=== PATIENT | female | born 1965 | race Caucasian/White ===

== ENCOUNTER 2017-10-25 11:11 | Inpatient (IN) ==
[2017-10-25] MEDS ORDERED: Acetaminophen 325 MG Tablet PO PRN (23:07)
[2017-10-25] MEDS ORDERED: Morphine Inj 4 MG/ML Vial IV.PUSH PRN (23:10)
--- NOTE | 2017-10-25 23:12 | P.HPIM ---
History of Present Illness Service: [facility] Primary Care Physician: No Primary Care Physician Chief Complaint: abdominal pain History of Present Illness: 52-year-old female with no medical history presented to the ED with complaints of right flank plain today. She states the pain is a constant 10/10, stabbing, to the right abdomen with radiation to her lower back, worse with movement, better with pain medication and no associated symptoms. She denies any chest pain, shortness of breath, fever or chills. PMFSH - History History Provided By: Patient - Medical / Surgical Hx Neg / Unobtainable Medical Problems Denied: Yes Surgical History: No Previous Surgery - Medical History Medical History: Medical History (Last Reviewed 10/26/17 @ 00:04 by ROMI Knutson) No significant past medical history - Surgical History Surgical History: Surgical History (Last Reviewed 10/26/17 @ 00:04 by ROMI Knutson) No history of previous surgery - Family History Family History: Family History (Last Reviewed 10/26/17 @ 00:04 by ROMI Knutson) Other Family history normal - Social History I have reviewed the patient's Social History: Yes - Tobacco History Second Hand Smoke Exposure: Yes Tobacco Use In Past 30 Days: Yes Smoking Status: Current every day smoker Tobacco Type: Cigarettes - Alcohol History How Often Do You Have a Drink Containing Alcohol: Never - Substance Use History Substance History: No History of Abuse Medications and Allergies Active Medications: Active Medications Acetaminophen (Tylenol) 650 mg PO Q4H PRN PRN Reason: Temp > 100.4 Sodium Chloride (Ns Inj) 1,000 mls @ 100 mls/hr IV.CONT .Q10H [facility] Morphine Sulfate (Morphine Inj) 2 mg IV.PUSH Q3H PRN PRN Reason: pain 1 to 10 Ondansetron HCl (Zofran Inj) 4 mg IV.PUSH Q6H PRN PRN Reason: NAUSEA OR VOMITING Allergies Allergy/AdvReac Type Severity Reaction Status Date / Time chocolate flavor [Chocolate] Allergy Severe Swelling Verified 10/25/17 11:58 STEROIDS Allergy Severe Anaphylaxis Uncoded 10/25/17 11:57 Home Medications Medication Instructions Recorded Confirmed Type levetiracetam 500 mg PO BID 10/25/17 10/25/17 History Exam Vital signs: Vital Signs 10/25/17 22:16 Temperature 98.4 F Pulse Rate 80 Respiratory Rate 16 Blood Pressure 124/79 Pulse Oximetry 94 L Intake & Output 10/25/17 10/25/17 10/26/17 06:59 18:59 06:59 Weight 61.6 kg Other: Weight On Admission 61.6 kg Narrative: GENERAL: This is a well-nourished, well-developed patient, in no apparent distress. SKIN: Warm, dry, intact, no ecchymosis or open lesions EYES: Pupils equal round and reactive, no scleral edema or drainage CARDIOVASCULAR: Regular rate and rhythm without murmurs, gallops, or rubs. RESPIRATORY: Clear to auscultation. Breath sounds equal bilaterally. No wheezes , rales, or rhonchi. GASTROINTESTINAL: Abdomen soft, RUQ tenderness, nondistended. Normal active bowel sounds MUSCULOSKELETAL: Extremities without clubbing, cyanosis, or edema. NEURO: Alert & Oriented x4 to person, place, time, situation. Moves all ext x4 Caprini VTE Risk Assessment Caprini VTE Risk Assessment: No/Low Risk (score <= 1) Caprini Risk Assessment Model: Point Value = 1 Point Value = 2 Point Value = 3 Point Value = 5 Age 41-60 Minor surgery BMI > 25 kg/m2 Swollen legs Varicose veins or History of unexplained or recurrent spontaneous Oral contraceptives or hormone replacement Sepsis (< 1 month) Serious lung disease, including pneumonia (< 1 month) Abnormal pulmonary function Acute myocardial infarction Congestive heart failure (< 1 month) History of inflammatory bowel disease Medical patient at bed rest Age 61-74 Arthroscopic surgery Major open surgery (> 45 min) Laparoscopic surgery (> 45 min) Malignancy Confined to bed (> 72 hours) Immobilizing plaster cast Central venous access Age >= 75 History of VTE Family history of VTE Factor V Leiden Prothrombin [id number] Lupus anticoagulant Anticardiolipin antibodies Elevated serum homocysteine Heparin-induced thrombocytopenia Other congenital or acquired thrombophilia Stroke (< 1 month) Elective arthroplasty Hip, pelvis, or leg fracture Acute spinal cord injury (< 1 month) Prophylaxis Regimen: Total Risk Factor Score Risk Level Prophylaxis Regimen 0-1 Low Early ambulation 2 Moderate Order ONE of the following: *Sequential Compression Device (SCD) *Heparin 5000 units SQ BID 3-4 Higher Order ONE of the following medications: *Heparin 5000 units SQ TID *Enoxaparin/Lovenox 40 mg SQ daily (WT < 150 kg, CrCl > 30 mL/min) *Enoxaparin/Lovenox 30 mg SQ daily (WT < 150 kg, CrCl > 10-29 mL/min) *Enoxaparin/Lovenox 30 mg SQ BID (WT < 150 kg, CrCl > 30 mL/min) AND/OR *Sequential Compression Device (SCD) 5 or more Highest Order ONE of the following medications: *Heparin 5000 units SQ TID (Preferred with Epidurals) *Enoxaparin/Lovenox 40 mg SQ daily (WT < 150 kg, CrCl > 30 mL/min) *Enoxaparin/Lovenox 30 mg SQ daily (WT < 150 kg, CrCl > 10-29 mL/min) *Enoxaparin/Lovenox 30 mg SQ BID (WT < 150 kg, CrCl > 30 mL/min) AND *Sequential Compression Device (SCD) Assessment and Plan - Plan Cholelithiasis Gallbladder ultrasound reviewed and shows nonobstructive cholelithiasis Consult general surgery, plan for cholecystectomy in a.m. N.p.o., IVF Pain management with IV morphine Tobacco abuse, -Cessation provided DVT prophylaxis: SCDs Discussed Condition With: Patient and RN H&P: Quality - VTE Deep Vein Thrombosis/Pulmonary Embolism Present on Admission: No
[2017-10-26] MEDS: Sod Chloride 0.9% Inj 1,000 ML IV.CONT SCH ×3 (00:16→18:41)
[2017-10-26] MEDS: HYDROmorphone PF Inj 2 MG/ML Vial IV.PUSH PRN ×5 (03:32→20:22)
[2017-10-26 07:31] LABS: Baso # (Auto) 0.1 th/mm3 (0.0-0.2); Eos # (Auto) 0.4 th/mm3 (0.0-0.4); Eos % (Auto) 5.9 % (0.0-4.0); Hematocrit 39.3 % (35.0-46.0); Lymph # (Auto) 1.8 th/mm3 (1.0-4.8); Lymph % (Auto) 26.5 % (9.0-44.0); Mean Corpuscular Hemoglobin 35.5 pg (27.0-34.0); Mean Corpuscular Volume 107.5 fL (80.0-100.0); Mean Platelet Volume 7.1 fL (7.0-11.0); Mono # (Auto) 0.5 th/mm3 (0.0-0.9); Mono % (Auto) 7.4 % (0.0-8.0); Neut # (Auto) 4.1 th/mm3 (1.8-7.7); Neut % (Auto) 59.2 % (16.0-70.0); Platelet Count 413 th/mm3 (150-450); Red Blood Count 3.66 mil/mm3 (4.00-5.30); Red Cell Distribution Width 19.7 % (11.6-17.2); White Blood Count 6.9 th/mm3 (4.0-11.0)
[2017-10-26 07:52] LABS: Anion Gap 8 meq/L (5-15); Blood Urea Nitrogen 3 mg/dL (7-18); Calcium 8.6 mg/dL (8.5-10.1); Carbon Dioxide 29.5 meq/L (21.0-32.0); Chloride 106 meq/L (98-107); Glomerular Filtration Rate Greater Than 89 mL/min (>89); Glucose,Random 82 mg/dL (74-106); Potassium 3.8 meq/L (3.5-5.1); Sodium 143 meq/L (136-145)
[2017-10-26] MEDS ORDERED: Sodium Chlor 0.9% Inj 500 ML IV.CONT ONE (08:00)
[2017-10-26] MEDS ORDERED: Chlorhexidine Gluconate 2% 1 Pack (2 Cloths) TOPICAL ONE (08:00)
[2017-10-26] MEDS ORDERED: Metoprolol Tartrate 25 MG Tablet PO ONE (08:00)
--- NOTE | 2017-10-26 10:17 | P.CONGS ---
[facility] Gen Surgery Consult Note Consult date: 10/26/17 Reason for consult: gallstones Requesting physician: Latasha Rahman Narrative: CONSULTATION NOTE FOR SURGICAL ATTENDING, DR. PRATIK ARTHUR This is a 52 year old female with no known past medical history who presented to the [place] ED yesterday after sudden onset of RIGHT flank abdominal pain. She reports the pain is worse when she moves around. A CTA was completed which shows no PE. An US of the gallbladder as well as a CT of the abdomen/pelvis was obtain which both confirm cholelithiasis. Her liver enzymes are normal. A General Surgery consultation has been requested. Review of Systems All other systems reviewed negative except as stated in [facility] PMFSH - History History Provided By: Patient - Medical / Surgical Hx Neg / Unobtainable Medical Problems Denied: Yes - Medical History Medical History: Medical History (Last Reviewed 10/30/17 @ 16:46 by Pratik Arthur MD) No significant past medical history - Surgical History Surgical History: Surgical History (Last Reviewed 10/30/17 @ 16:46 by Pratik Arthur MD) No history of previous surgery - Family History Family History: Family History (Last Reviewed 10/30/17 @ 16:46 by Pratik Arthur MD) Other Family history normal - Tobacco History Second Hand Smoke Exposure: Yes Tobacco Use In Past 30 Days: Yes Smoking Status: Current every day smoker Tobacco Type: Cigarettes - Alcohol History How Often Do You Have a Drink Containing Alcohol: Never - Substance Use History Substance History: No History of Abuse Medications and Allergies Allergies Allergy/AdvReac Type Severity Reaction Status Date / Time chocolate flavor [Chocolate] Allergy Severe Swelling Verified 10/25/17 11:58 STEROIDS Allergy Severe Anaphylaxis Uncoded 10/25/17 11:57 Home Medications Medication Instructions Recorded Confirmed Type levetiracetam 500 mg PO BID 10/25/17 10/25/17 History Active Medications: Active Medications Acetaminophen (Tylenol) 650 mg PO Q4H PRN PRN Reason: Temp > 100.4 Hydromorphone HCl (Dilaudid Pf Inj) 1 mg IV.PUSH Q4H PRN PRN Reason: pain 1 to 10 Last Admin: 10/26/17 07:32 Dose: 1 mg Sodium Chloride (Ns Inj) 1,000 mls @ 100 mls/hr IV.CONT .Q10H [facility] Last Admin: 10/26/17 09:02 Dose: 100 mls/hr Lactated Ringer's (Lr 1000 Ml Inj) 1,000 mls @ 30 mls/hr IV.CONT .Q24H ONE Stop: 10/27/17 07:59 Sodium Chloride (Ns Inj) 500 mls @ 30 mls/hr IV.CONT .[id number] ONE Stop: 10/27/17 00:39 Ondansetron HCl (Zofran Inj) 4 mg IV.PUSH Q6H PRN PRN Reason: NAUSEA OR VOMITING Exam Vital signs: Vital Signs 10/26/17 00:00 10/26/17 00:20 10/26/17 01:44 Temperature 98.4 F Pulse Rate 80 76 Respiratory Rate 16 18 Blood Pressure 124/79 Pulse Oximetry 94 L 10/26/17 04:00 10/26/17 07:38 10/26/17 07:39 Temperature 98.4 F 97.6 F Pulse Rate 80 81 81 Respiratory Rate 16 18 Blood Pressure 116/70 137/86 Pulse Oximetry 93 L 91 L Intake & Output 09/12/18 09/13/18 09/13/18 18:59 06:59 18:59 Intake Total 1000 / 1000 Balance 1000 / 1000 Weight 61.6 kg Intake: IV 1000 / 1000 NS Inj 1,000 ML @ 100 mls/hr IV 1000 / 1000 .CONT .Q10H [facility] Rx#:[id number] Other: Weight On Admission 61.6 kg Narrative: GENERAL: Alert and awake female ambulating in her room in moderate distress secondary to abdominal pain. SKIN: Warm and dry. HEAD: Atraumatic. Normocephalic. EYES: Pupils equal and round. No scleral icterus. No injection or drainage. ENT: No nasal bleeding or discharge. Mucous membranes pink and moist. NECK: Trachea midline. CARDIOVASCULAR: Regular rate and rhythm. RESPIRATORY: No accessory muscle use. Clear to auscultation. Breath sounds equal bilaterally. GASTROINTESTINAL: Abdomen soft, nondistended. RUQ tenderness to palpation. Her umbilicus has a piercing in place. No visible scars or hernias. MUSCULOSKELETAL: Extremities without clubbing, cyanosis, or edema. No obvious deformities. NEUROLOGICAL: Awake and alert. No obvious cranial nerve deficits. Motor grossly within normal limits. Five out of 5 muscle strength in the arms and legs. Normal speech. PSYCHIATRIC: Appropriate mood and affect; insight and judgment normal. Results - Labs 10/26/17 07:03 10/26/17 07:03 Laboratory Results WBC 6.9 th/mm3 (4.0-11.0) 10/26/17 07:03 RBC 3.66 mil/mm3 (4.00-5.30) L 10/26/17 07:03 Hgb 13.0 gm/dL (11.6-15.3) 10/26/17 07:03 Hct 39.3 % (35.0-46.0) 10/26/17 07:03 MCV 107.5 fL (80.0-100.0) H 10/26/17 07:03 MCH 35.5 pg (27.0-34.0) H 10/26/17 07:03 MCHC 33.0 % (32.0-36.0) 10/26/17 07:03 RDW 19.7 % (11.6-17.2) H D 10/26/17 07:03 Plt Count 413 th/mm3 (150-450) 10/26/17 07:03 MPV 7.1 fL (7.0-11.0) 10/26/17 07:03 Neut % (Auto) 59.2 % (16.0-70.0) 10/26/17 07:03 Lymph % (Auto) 26.5 % (9.0-44.0) 10/26/17 07:03 [place] % (Auto) 7.4 % (0.0-8.0) 10/26/17 07:03 Eos % (Auto) 5.9 % (0.0-4.0) H 10/26/17 07:03 Baso % (Auto) 1.0 % (0.0-2.0) 10/26/17 07:03 Neut # (Auto) 4.1 th/mm3 (1.8-7.7) 10/26/17 07:03 Lymph # (Auto) 1.8 th/mm3 (1.0-4.8) 10/26/17 07:03 [place] # (Auto) 0.5 th/mm3 (0.0-0.9) 10/26/17 07:03 Eos # (Auto) 0.4 th/mm3 (0.0-0.4) 10/26/17 07:03 Baso # (Auto) 0.1 th/mm3 (0.0-0.2) 10/26/17 07:03 WBC Differential . 10/26/17 07:03 Differential Comment Auto diff final 10/26/17 07:03 Sodium 143 meq/L (136-145) 10/26/17 07:03 Potassium 3.8 meq/L (3.5-5.1) 10/26/17 07:03 Chloride 106 meq/L (98-107) 10/26/17 07:03 Carbon Dioxide 29.5 meq/L (21.0-32.0) 10/26/17 07:03 Anion Gap 8 meq/L (5-15) 10/26/17 07:03 BUN 3 mg/dL (7-18) L 10/26/17 07:03 Creatinine 0.39 mg/dL (0.50-1.00) L 10/26/17 07:03 Estimated GFR Greater than 89 mL/min (>89) 10/26/17 07:03 Random Glucose 82 mg/dL (74-106) 10/26/17 07:03 Calcium 8.6 mg/dL (8.5-10.1) 10/26/17 07:03 - Imaging CT scan - abdomen: report reviewed, image reviewed CT scan - chest: report reviewed, image reviewed US - abdomen: report reviewed, image reviewed Assessment and Plan - Assessment (1) Biliary colic Code(s): K80.50 - Calculus of bile duct without cholangitis or cholecystitis without obstruction Status: Inactive Plan: 52 year old female with RUQ pain; cholelithiasis -Clear liquids tonight; NPO after MN -Obtain consents for laparoscopic cholecystectomy -Will plan for lap chris tomorrow -Procedure explained and all questions answered -Thank you for this consult; We will continue to follow (2) Right upper quadrant pain Code(s): R10.11 - Right upper quadrant pain Status: Acute (3) Cholecystitis Code(s): K81.9 - Cholecystitis, unspecified Status: Acute (4) Abnormal findings on diagnostic imaging of liver and biliary tract Code(s): R93.2 - Abnormal findings on diagnostic imaging of liver and biliary tract Status: Acute (5) Abnormal findings on diagnostic imaging of gallbladder Code(s): R93.2 - Abnormal findings on diagnostic imaging of liver and biliary tract Status: Acute - Plan Discussed Condition With: Dr. Farideh Brown - Attending Attestation CONSULTATION NOTE FOR SURGICAL ATTENDING, DR. PRATIK ARTHUR Patient has severe right upper quadrant pain and all the clinical findings consistent with biliary colic confirmed with radiologic imaging I agree with above assessment and plan. The exam, history, and the medical decision-making described in the above note were completed with the assistance of the mid-level provider. I reviewed and agree with the findings presented. I attest that I had a [id number] encounter with the patient on the same day, and personally performed and documented my assessment and findings in the medical record. The following services were provided during this hospital visit: Chart data review, vital sign assessments/reviewing monitor data Review of consultations notes if present. Medication orders/review and/or management Ordering and/or reviewing lab tests Ordering and/or interpreting/reviewing x-rays and/or diagnostic studies Care of the patient and discussion of the patient with the care team Documentation time To help prompt me to consider important information that might be impacting today's encounter and assessment, Information from prior notes written by myself or my colleagues may have been "brought forward/copy and pasted" into today's note.
--- NOTE | 2017-10-26 12:43 | P.PNIM ---
Subjective Interval history: Denies any deterioration since last night. Patient reports still having pain. No nausea. Physical Exam Vital signs: Vital Signs 10/26/17 00:00 10/26/17 00:20 10/26/17 01:44 Temperature 98.4 F Pulse Rate 80 76 Respiratory Rate 16 18 Blood Pressure 124/79 Pulse Oximetry 94 L 10/26/17 04:00 10/26/17 07:38 10/26/17 07:39 Temperature 98.4 F 97.6 F Pulse Rate 80 81 81 Respiratory Rate 16 18 Blood Pressure 116/70 137/86 Pulse Oximetry 93 L 91 L 10/26/17 12:00 Temperature 97.8 F Pulse Rate 81 Respiratory Rate 16 Blood Pressure 128/76 Pulse Oximetry 90 L Intake & Output 10/25/17 10/26/17 10/26/17 18:59 06:59 18:59 Intake Total 1000 / 1000 Balance 1000 / 1000 Weight 61.6 kg Intake: IV 1000 / 1000 NS Inj 1,000 ML @ 100 mls/hr IV 1000 / 1000 .CONT .Q10H [facility] Rx#:[id number] Other: Weight On Admission 61.6 kg Narrative: Abdomen soft, but diffusely tender to palpation, no distention Lying in bed, awake, alert, mild distress secondary to pain Unlabored breathing Results - Labs CBC & Chem 7: 10/26/17 07:03 10/26/17 07:03 Laboratory Results - last 24 hr 10/26/17 10/26/17 07:03 07:03 WBC 6.9 RBC 3.66 L Hgb 13.0 Hct 39.3 MCV 107.5 H MCH 35.5 H MCHC 33.0 RDW 19.7 H D Plt Count 413 MPV 7.1 Neut % (Auto) 59.2 Lymph % (Auto) 26.5 [place] % (Auto) 7.4 Eos % (Auto) 5.9 H Baso % (Auto) 1.0 Neut # (Auto) 4.1 Lymph # (Auto) 1.8 [place] # (Auto) 0.5 Eos # (Auto) 0.4 Baso # (Auto) 0.1 WBC Differential . Differential Comment Auto diff final Sodium 143 Potassium 3.8 Chloride 106 Carbon Dioxide 29.5 Anion Gap 8 BUN 3 L Creatinine 0.39 L Estimated GFR Greater than 89 Random Glucose 82 Calcium 8.6 Assessment and Plan - Plan Cholelithiasis Anticipate cholecystectomy today per general surgery -Pain medication as needed IV fluids, n.p.o.
[2017-10-26 14:13] LABS: Total Protein 7.2 g/dL (6.4-8.2)
--- NOTE | 2017-10-26 18:48 | ECG ---
Date Performed: 10/26/2017 Time Performed: 04:06:44 PTAGE: 52 years EKG: Sinus rhythm NORMAL ECG NO PREVIOUS TRACING DOCTOR: Garrett Nolen Interpretating Date/Time 10/26/2017 18:46:23
[2017-10-26] MEDS ORDERED: HYDROmorphone PF Inj 2 MG/ML Vial IV.PUSH ONE (21:57)
[2017-10-27] MEDS: HYDROmorphone PF Inj 2 MG/ML Vial IV.PUSH PRN (05:19)
[2017-10-27] MEDS ORDERED: HYDROmorphone PF Inj 2 MG/ML Vial IV.PUSH ONE (05:46)
[2017-10-27] MEDS ORDERED: Chlorhexidine Gluconate 2% 1 Pack (2 Cloths) TOPICAL ONE ×2 (06:01)
[2017-10-27] MEDS ORDERED: Metoprolol Tartrate 25 MG Tablet PO ONE (06:01)
[2017-10-27] MEDS ORDERED: Sodium Chlor 0.9% Inj 500 ML IV.SIG SCH ×2 (07:00)
[2017-10-27] MEDS: Sod Chloride 0.9% Inj 1,000 ML IV.CONT SCH ×2 (07:12→16:11)
[2017-10-27 07:28] LABS: Activated Partial Thrombo Time 27.4 sec (24.3-30.1); INR 1.1 Ratio; Prothrombin Time 10.8 sec (9.8-11.6)
[2017-10-27] MEDS ORDERED: Bupivacaine/Epinephrine 0.5% Inj 50 ML Vial ONE (08:00)
[2017-10-27] MEDS ORDERED: Glycopyrrolate Inj 1 MG/5 ML Syringe IV.PUSH ONE (09:00)
[2017-10-27] MEDS ORDERED: Lidocaine PF 1% Inj 5 ML Syringe INFILTRATN ONE (09:00)
[2017-10-27] MEDS ORDERED: Neostigmine Inj 5 MG/5 ML Syringe IV.PUSH ONE (09:00)
--- NOTE | 2017-10-27 10:15 | P.OP ---
- Preoperative Diagnosis (1) Right upper quadrant pain (2) Cholecystitis - Postoperative Diagnosis (1) Status post laparoscopic cholecystectomy (2) Cholecystitis (3) Right upper quadrant pain Date of procedure: 10/27/17 Procedure: Laparoscopic cholecystectomy Surgeon: Pratik Gong MD Pathology: other (Gallbladder) Operation and Findings: PREOPERATIVE DIAGNOSIS: Cholelithiasis And/or Cholecystitis POSTOP DIAGNOSIS: Cholecystitis PROCEDURE: Laparoscopic Cholecystectomy ANESTHESIA: General SURGEON: Pratik Gong M.D. ASST. PROCEDURE DETAILS The patient was brought to the operating room and after proper identification. The patient was intubated after the induction of appropriate anesthesia. The patient remained under general anesthesia for the duration of the case. The patient was prepped with an antiseptic over the abdomen in the usual fashion and then he was draped in the usual sterile fashion. Following the draping, the pneumoperitoneum was established via Veress needle after saline load test had been performed via a infra-umbilical incision. After direct visualization of the peritoneum, the trocar was introduced and insufflation was begun. After appropriate insufflation a scope was inserted and the abdomen was visually inspected to be benign in gross visualization. Next, another 5 mm port was placed just below the xiphoid. This was then followed by the placement of 5 mm ports in between the 2 previously placed ports. All port sites were anesthetized with a Marcaine solution. The gallbladder was easily identified. There were a few adhesions. No intraabdominal fluid. Upon retraction of the gallbladder, the infundibulum was identified. After some blunt dissection, the cystic duct was identified and then skeletonized using the small grasper. After appropriate identification of the cystic duct, it was clipped 3 times with 2 clips staying, 1 clip going. It was then transected with scissors. This was performed without any complication. Next, a cystic artery was identified and 2 surgical clips on the proximal end and 1 surgical clip on the distal end were applied and this was transected using the laparoscopic scissors. Following this, the gallbladder was easily retracted back and electrocautery was used to dissect the gallbladder fossa. There was a well-established plane. After application of the clips, no further bleeding from this site was appreciated. Hemostasis was attained on the gallbladder fossa using a small amount of electrocautery. Following the removal of the gallbladder from the gallbladder fossa, it was placed in an endobag and subsequently removed from the supraumbilical port site. We double checked for hemostasis at the cystic artery. Also checked the cystic duct stump which showed no bile leakage. All ports were then removed The infra-umbilical fascia was closed directly with 0 Vicryl and then the dermis was closed at all 3 incision sites with a 4-0 absorbable monofilament in a running subcuticular manner. The fascia was closed in a simple interrupted manner. Steri-Strips and dressings were placed over the incision sites. The patient was awakened from anesthesia. The patient was returned to post-anesthesia care unit in a stable condition. DETAIL SPECIFIC TO THIS PROCEDURE: Gallbladder was distended and floppy Mild inflammation around the gallbladder She did have some inflammation around the dome of the liver no mass was seen Normal appendix Pratik Gong M.D.
[2017-10-27] MEDS ORDERED: fentaNYL Citrate Inj 100 MCG/2 ML Ampul ONE ×2 (10:45)
[2017-10-27] MEDS ORDERED: Ketorolac Inj 30 MG/ML (IVP) Vial ONE (10:56)
[2017-10-27] MEDS ORDERED: Ketorolac Inj 30 MG/ML (IVP) Vial IV.PUSH ONE (13:45)
--- NOTE | 2017-10-27 15:49 | P.PN ---
Subjective Interval history: He denies any deterioration since last night. Patient reports having improved pain today compared to yesterday. Physical Exam Vital signs: Vital Signs 10/26/17 19:41 10/26/17 21:04 10/26/17 21:16 Temperature 98.7 F 98.8 F Pulse Rate 73 70 79 Respiratory Rate 16 18 Blood Pressure 143/86 H 138/84 Pulse Oximetry 94 L 95 10/26/17 21:24 10/27/17 00:00 10/27/17 00:05 Temperature 98.4 F Pulse Rate 73 69 Respiratory Rate 18 16 Blood Pressure 109/69 Pulse Oximetry 94 L 10/27/17 04:00 10/27/17 05:52 10/27/17 08:00 Temperature 98.4 F 98.5 F Pulse Rate 75 82 89 Respiratory Rate 16 16 Blood Pressure 122/74 127/87 Pulse Oximetry 94 L 92 L 10/27/17 10:22 10/27/17 10:45 10/27/17 11:00 Temperature 97.5 F L 97.8 F Pulse Rate 73 67 66 Respiratory Rate 15 15 15 Blood Pressure 132/79 120/70 121/68 Pulse Oximetry 98 98 97 10/27/17 12:00 Temperature 97.6 F Pulse Rate 82 Respiratory Rate 18 Blood Pressure 121/79 Pulse Oximetry 93 L Intake & Output 10/26/17 10/27/17 10/27/17 18:59 06:59 18:59 Intake Total 1999 1000 / 1000 600 / 600 Output Total 5 / 5 Balance 1999 1000 / 1000 595 / 595 Weight 61.5 kg Intake: IV 1999 1000 / 1000 100 / 100 NS Inj 1,000 ML @ 100 mls/hr IV 1999 1000 / 1000 .CONT .Q10H [facility] Rx#:[id number] Ofirmev Inj 1,000 mg In 100 ml 100 / 100 @ 400 mls/hr IV.SIG Q6H [facility] Rx# :[id number] Anesthesia Amount 500 / 500 Output: Estimated Blood Loss 5 / 5 Other: # Voids 5 4 # Urine Diapers 2 Date of Last Bowel Movement 10/22/17 Narrative: Sitting up in bed, awake, alert, no acute distress Clear lungs bilaterally, unlabored breathing Abdomen is soft Results - Labs CBC & Chem 7: 10/26/17 07:03 10/26/17 07:03 Laboratory Results - last 24 hr 10/27/17 07:09 PT 10.8 INR 1.1 APTT 27.4 Assessment and Plan - Plan Acute abdominal pain now improved Status post cholecystectomy Tolerating p.o. intake well. Discharge once cleared with general surgery.
[2017-10-27 16:04] VITALS: BP 108/65; PULSE 81; TEMP 98.6; O2SAT 94
[2017-10-27 16:11] VITALS: RESP 17
== END 2017-10-27 18:14 | disposition home or self-care (01) ==
LOC: NEDDLT 21:45 → NEPHCDU 21:45 → N06 10-26 21:03
PROVIDERS: ADMIT Hospitalist; ATTEND Hospitalist